=== PATIENT | male | born 1980 | race Native Hawaiian/Other Pacific Islander ===

== ENCOUNTER → 2024-01-16 | Day surgery (SDC) | payer OTHER ==
[2024-01-15 09:41] VITALS: BMI 28.0
[~2024-01-16] MED LIST: LIDOCAINE 1% (10MG/ML) FOR IV START INTRADERMA PRN
[2024-01-16 10:11] VITALS: BP 112/71; PULSE 84; RESP 18; TEMP 97.8
[2024-01-16] MEDS: IV FLUID CONTINUATION 1,000 ML IV ONE ×2 (10:20→10:39)
[2024-01-16] MEDS: LACTATED RINGERS 1,000 ML IV SCH (10:20)
== END ==
LOC: ORWHC2ENDO 09:38
PROVIDERS: ATTEND Surgery
DX: K92.2 Gastrointestinal hemorrhage, unspecified

== ENCOUNTER → 2024-01-30 | Day surgery (SDC) | payer OTHER ==
[2024-01-30 10:33] VITALS: BP 110/61; PULSE 64; RESP 16; TEMP 97.3
[2024-01-30] MEDS: LACTATED RINGERS 1,000 ML IV SCH (10:39)
[2024-01-30] MEDS: IV FLUID CONTINUATION 1,000 ML IV ONE (10:40)
== END ==
LOC: ORWHC2ENDO 10:06
PROVIDERS: ATTEND Surgery
DX: Z53.8 Procedure and treatment not carried out for other reasons (principal); K92.2 Gastrointestinal hemorrhage, unspecified